=== PATIENT | female | born 1965 | race Hispanic/Latino ===

== ENCOUNTER 2020-10-04 05:48 | Day surgery (SDC) | payer MEDICAID ==
[~2020-10-04] VITALS: Ht 157.5 cm; Wt 70.3 kg
[2020-10-04] VITALS (11 sets, daily range): BP systolic 120–164; BP diastolic 56–88
[2020-10-04] MEDS ORDERED: SODIUM CHLORIDE 0.9% 1000ML 1,000 ML IV ONE (06:15)
[2020-10-04] MEDS ORDERED: AMLO-257 PO (07:24)
[2020-10-04] MEDS ORDERED: OMEP40CA13 PO (07:24)
[2020-10-04] MEDS ORDERED: ATOR10TA69 PO (07:24)
[2020-10-04] MEDS ORDERED: DIPH25 PO (07:24)
[2020-10-04] MEDS ORDERED: PROPOFOL 10 MG/ML 20ML VIAL IV ONE (08:31)
[2020-10-04] MEDS ORDERED: MIDAZOLAM HCL 1 MG/ML 2ML VIAL ONE (08:31)
[2020-10-04] MEDS ORDERED: TRAMADOL HCL 50 MG TABLET PO ONE (09:45)
== END 2020-10-04 10:18 | disposition home or self-care (01) ==
LOC: DAH 05:48 → ENDO 05:48
PROVIDERS: ATTEND Internal Medicine Gastroenterology
DX: K86.2 Cyst of pancreas (principal); Z20.828 Contact with and (suspected) exposure to other viral communicable diseases; K86.3 Pseudocyst of pancreas; K86.89 Other specified diseases of pancreas; K76.0 Fatty (change of) liver, not elsewhere classified; K85.90 Acute pancreatitis without necrosis or infection, unspecified; K83.8 Other specified diseases of biliary tract; I10 Essential (primary) hypertension; E78.5 Hyperlipidemia, unspecified; E78.00 Pure hypercholesterolemia, unspecified; F41.9 Anxiety disorder, unspecified; Z79.899 Other long term (current) drug therapy; Z80.0 Family history of malignant neoplasm of digestive organs; Z90.49 Acquired absence of other specified parts of digestive tract; Z98.890 Other specified postprocedural states
CPT/HCPCS: 36415; 43238; 82150; 82378; 82945; 87426; A4215 ×3; A4216; A4221; A4222; A4606; A4620; A4657 ×2; A4663; J2250; J2704; J7030